=== PATIENT | female | born 1970 | race Caucasian/White ===

== ENCOUNTER 2024-01-06 10:35 | Observation (INO) | payer OTHER ==
[2024-01-06 11:16] LABS: #Basophils Less than 0.03 10x3/uL (0.0-0.2); %Basophils 0.3 % (0.0-1.0); %Eosinophils 2.3 % (0.0-10.0); %Lymphocytes 30.5 % (21.0-51.0); %Neutrophils 60.2 % (42.0-75.0); Hematocrit 35.9 % (36.0-47.0); Hemoglobin 12.4 g/dL (12.0-16.0); Mean Corpuscular HGB CONC 34.5 g/dL (32.0-36.0); Mean Corpuscular Hemoglobin 29.2 pg (27.0-31.0); Mean Corpuscular Volume 84.5 fL (78.0-98.0); Mean Platelet Volume 10.2 fL (7.4-10.4); Platelet Count 159 10x3/uL (130-400); RBC Distribution Width 13.3 % (11.5-14.5); Red Blood Cell (RBC) Count 4.25 mill/uL (4.20-5.40)
[2024-01-06 11:40] LABS: Troponin I Less than 0.010 ng/mL (< 0.028)
[2024-01-06 11:43] LABS: Anion Gap 14 mmol/L (10-20); BUN (Urea Nitrogen) 16 mg/dL (9.8-20.1); Calc. Creatinine Clearance 0 mL/min (70-130); Carbon Dioxide 22 mmol/L (22-29); Chloride 106 mmol/L (98-107); Sodium 137 mmol/L (136-145)
[2024-01-06 11:44] LABS: ALT (SGPT) 24 U/L (8-55); AST (SGOT) 33 U/L (5-34); Albumin 4.2 g/dL (3.5-5.0); Alkaline Phosphatase 156 U/L (40-110); Bilirubin, Total 0.6 mg/dL (0.2-1.2); Calcium 9.3 mg/dL (7.8-10.44); Estimated GFR 87; Glucose 105 mg/dL (70-105); Protein, Total 8.2 g/dL (6.0-8.3)
[2024-01-06] MEDS ORDERED: Nitroglycerin 2% Ointment 1 INCH/1 GM Packet ONE (11:51)
[2024-01-06] MEDS ORDERED: Ondansetron ODT 4 MG TAB ONE (12:30)
[2024-01-06] MEDS ORDERED: hydrALAZINE 20 MG/ML VIAL SLOW IVP PRN (13:50)
[2024-01-06] MEDS ORDERED: Ondansetron PF 4 MG/2 ML Vial ONE (14:50)
[2024-01-06 14:59] LABS: Troponin I 0.012 ng/mL (< 0.028)
[2024-01-06] MEDS: Ondansetron PF 4 MG/2 ML Vial IVP PRN (16:16)
[2024-01-06] MEDS: traMADol HCl 50 MG TAB PO PRN (16:16)
[2024-01-06] MEDS: Acetaminophen 325 MG TAB PO SCH (16:16)
[2024-01-06] MEDS: Nitroglycerin 2% Ointment 1 INCH/1 GM Packet TOP SCH ×2 (16:24→16:43)
[2024-01-06] MEDS: Amlodipine 10 MG TAB PO SCH (16:24)
[2024-01-06 18:10] VITALS: BMI 37.1
[2024-01-06] MEDS: Nitroglycerin 2% Ointment 1 INCH/1 GM Packet ONE (18:31)
[2024-01-06] MEDS: Enoxaparin 100 MG (1 mL) SYRINGE SC SCH (18:49)
[2024-01-06] MEDS: Morphine 2 MG/ML VIAL SLOW IVP PRN (18:53)
[2024-01-06 19:46] LABS: Troponin I 0.013 ng/mL (< 0.028)
[2024-01-06] MEDS: Famotidine/PF 20 mg/2ml Vial SLOW IVP SCH (20:20)
[2024-01-06] MEDS ORDERED: Enoxaparin 80 MG (0.8 mL) SYRINGE SC SCH (21:00)
[2024-01-06] MEDS ORDERED: Nitroglycerin 2% Ointment 1 INCH/1 GM Packet TOP SCH (22:00)
[2024-01-07] MEDS: Nitroglycerin 2% Ointment 1 INCH/1 GM Packet TOP SCH (02:25)
[2024-01-07] MEDS: Enoxaparin 100 MG (1 mL) SYRINGE SC SCH (08:15)
[2024-01-07] MEDS: Senokot S 8.6-50 MG TAB PO PRN (08:15)
[2024-01-07] MEDS: Calcium Carbonate 500 MG ChewTAB PO PRN (08:15)
[2024-01-07] MEDS: Amlodipine 5 MG TAB PO SCH (08:16)
[2024-01-07] MEDS: Losartan 25 MG TAB PO SCH (08:16)
[2024-01-07] MEDS ORDERED: Regadenoson 0.4 MG/5 ML SYRINGE ONE (10:53)
[2024-01-07] MEDS ORDERED: GASTROGRAFIN 30 ML BOT ONE (11:39)
[2024-01-07] MEDS ORDERED: Iopamidol-370 76% 500 ML MDV (1 ML CHARGE) ONE (11:39)
[2024-01-07 12:48] LABS: #Basophils Less than 0.03 10x3/uL (0.0-0.2); %Basophils 0.3 % (0.0-1.0); %Eosinophils 1.9 % (0.0-10.0); %Lymphocytes 35.3 % (21.0-51.0); %Monocytes 6.2 % (0.0-10.0); Hematocrit 37.7 % (36.0-47.0); Hemoglobin 12.6 g/dL (12.0-16.0); Mean Corpuscular HGB CONC 33.4 g/dL (32.0-36.0); Mean Corpuscular Hemoglobin 29.3 pg (27.0-31.0); Mean Corpuscular Volume 87.7 fL (78.0-98.0); Mean Platelet Volume 9.7 fL (7.4-10.4); Platelet Count 170 10x3/uL (130-400); RBC Distribution Width 13.5 % (11.5-14.5)
[2024-01-07 13:21] LABS: ALT (SGPT) 21 U/L (8-55); AST (SGOT) 21 U/L (5-34); Albumin 4.1 g/dL (3.5-5.0); Alkaline Phosphatase 151 U/L (40-110); Anion Gap 14 mmol/L (10-20); BUN (Urea Nitrogen) 16 mg/dL (9.8-20.1); Bilirubin, Total 0.9 mg/dL (0.2-1.2); Calc. Creatinine Clearance 111 mL/min (70-130); Calcium 9.3 mg/dL (7.8-10.44); Carbon Dioxide 27 mmol/L (22-29); Chloride 102 mmol/L (98-107); Estimated GFR 87; Globulin 3.5 g/dL (2.4-3.5); Glucose 97 mg/dL (70-105); Magnesium 2.2 mg/dL (1.6-2.6); Potassium 4.3 mmol/L (3.5-5.1); Protein, Total 7.6 g/dL (6.0-8.3); Sodium 139 mmol/L (136-145)
[2024-01-07 13:22] LABS: Troponin I Less than 0.010 ng/mL (< 0.028)
[2024-01-07] MEDS: Pantoprazole 40 MG VIAL IVP SCH (18:05)
[2024-01-08] MEDS: Bisacodyl 5 MG TAB PO SCH (10:06)
[2024-01-08] MEDS: Mineral Oil ENEMA PR SCH (10:07)
[2024-01-08 12:56] VITALS: BP 154/84; TEMP 97.5
== END 2024-01-08 13:30 ==
LOC: ERS 10:35 → EEVIPCON 10:35 → ERS 15:03 → 2SW 15:03
PROVIDERS: ADMIT Internal Medicine; ATTEND Internal Medicine
DX: R07.9 Chest pain, unspecified (principal); I10 Essential (primary) hypertension; E66.9 Obesity, unspecified; Z79.899 Other long term (current) drug therapy; Z88.0 Allergy status to penicillin; Z88.6 Allergy status to analgesic agent
CPT/HCPCS: 36415; 71045; 74177; 78452; 80053; 83690; 83735; 84484; 85025; 93005; 93010; 93017; 94760; 96372; 96374; 96375; 96376; A9502; G0378; J1650; J2272; J2405; J2470; J2785; J3490; Q0162; Q9963; Q9967